=== PATIENT | female | born 2000 | race Caucasian/White ===

== ENCOUNTER 2019-03-09 14:28 | Emergency (ER) | payer MEDICAID ==
[~2019-03-09] VITALS: Ht 147.3 cm; Wt 54.5 kg
[2019-03-09 14:46] VITALS: BP 127/62; PULSE 82; TEMP 98
== END 2019-03-09 17:30 | disposition left against medical advice (07) ==
LOC: COL.ER 14:28
DX: M54.5 Low back pain (principal); R07.89 Other chest pain; M25.471 Effusion, right ankle; R20.0 Anesthesia of skin; V89.2XXA Person injured in unspecified motor-vehicle accident, traffic, initial encounter